=== PATIENT | female | born 1995 | race American Indian/Alaskan Native ===

== ENCOUNTER 2017-08-21 07:04 | Day surgery (SDC) | payer OTHER ==
--- NOTE | 2017-08-20 23:09 | History and Physical Report ---
History of Present Illness Date of examination: 08/20/17 Chief complaint: LLQ pain History of present illness: Pt is a 21 year old nulligravida who presents with a 6 month history of intermittent severe pain and findings of 7.9 cm and 2.4 cm left ovarian cysts. She presents today for surgical management. 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: chlamydia (remote) Family/Genetic History: hypertension Social history: no significant social history Medications and Allergies Allergies Allergy/AdvReac Type Severity Reaction Status Date / Time No Known Allergies Allergy Unverified 08/19/17 12:10 Home Medications Medication Instructions Recorded Confirmed Last Taken Type No Known Home Medications [No 08/19/17 08/19/17 Unknown History Reported Home Medications] Review of Systems All systems: negative - Physical Exam Breasts: Positive: deferred Cardiovascular: Regular rate Lungs: Positive: Clear to auscultation Abdomen: Positive: soft Extremities: Positive: normal Results All other labs normal. Assessment and Plan A: LLQ pain Left ovarian cysts P: Proceed with laparoscopic left ovarian cystectomy and other indicated procedures.
[~2017-08-21 07:04] MED LIST: ANCEF/STERILE WATER 2 GM/20 ML 2 GM/20 ML SYRINGE IV NR; LACTATED RINGERS 1,000 ML IV SCH
[2017-08-21] MEDS ORDERED: NACL BACTERIOSTATIC INFILTRATI ONE (07:38)
--- NOTE | 2017-08-21 07:54 | Anesthesia Consultation ---
Anesthesia Consult and Med Hx Date of service: 08/21/17 - Airway Anesthetic Teeth Evaluation: Good ROM Head & Neck: Adequate Mental/Hyoid Distance: Adequate Mallampati Class: Class I Intubation Access Assessment: Good - Pulmonary Exam CTA: Yes - Cardiac Exam Cardiac Exam: RRR - Pre-Operative Health Status ASA Pre-Surgery Classification: ASA1 Proposed Anesthetic Plan: General
--- NOTE | 2017-08-21 08:01 | Anesthesia Day of Surgery ---
Anesthesia Day of Surgery - Day of Surgery Patient Examined: Yes Patient H&P Reviewed: Yes Patient is NPO: Yes
[2017-08-21 08:24] LABS: Hematocrit 40.6 % (30.3-42.9); Hemoglobin 13.9 gm/dl (10.1-14.3); Mean Corpuscular HGB Conc 34 % (30-34); Mean Corpuscular Hemoglobin 31 pg (28-32); Mean Corpuscular Volume 91 fl (79-97); Platelet Count 247 K/mm3 (140-440); Red Blood Count 4.44 M/mm3 (3.65-5.03); Red Cell Distribution Width 12.8 % (13.2-15.2)
[2017-08-21] MEDS ORDERED: MARCAINE 0.5% 30 ML INFILTRATI ONE (08:45)
[2017-08-21] MEDS ORDERED: SUBLIMAZE ONE (08:48)
[2017-08-21] MEDS ORDERED: DIPRIVAN 10 MG/ML IV ONE (08:48)
[2017-08-21] MEDS ORDERED: ZEMURON IV ONE (08:59)
[2017-08-21] MEDS ORDERED: XYLOCAINE MPF 2% ONE (08:59)
[2017-08-21] MEDS ORDERED: VERSED IV NR (09:00)
[2017-08-21] MEDS ORDERED: PEPCID PO NR (09:00)
[2017-08-21] MEDS ORDERED: LACTATED RINGERS 1,000 ML ONE (09:29)
[2017-08-21] MEDS ORDERED: ZOFRAN ONE ×2 (09:41→11:28)
[2017-08-21] MEDS ORDERED: DECADRON ONE (09:41)
[2017-08-21] MEDS ORDERED: MARCAINE 0.5% INFILTRATI ONE (09:42)
[2017-08-21] MEDS ORDERED: NACL 0.9% IR ONE ×2 (09:43→09:58)
[2017-08-21] MEDS ORDERED: NEOSTIGMINE ONE (10:09)
[2017-08-21] MEDS ORDERED: ROBINUL ONE (10:09)
[2017-08-21] MEDS ORDERED: TORADOL ONE (10:09)
[2017-08-21] MEDS ORDERED: DILAUDID ONE (11:13)
--- NOTE | 2017-08-21 11:24 | Operative Report ---
Operative Report Operative Report: Date of procedure: August 21, 2017 Preoperative diagnosis: 1) Pelvic Pain 2) Complex left ovarian cyst Postoperative diagnosis: Same Procedure: Laparoscopic left ovarian cystectomy Surgeon: Sarita Le M.D. Motor Vehicle Clerk: Morena Green M.D. Anesthesia: General endotracheal anesthesia Findings: 1) Small retroverted uterus sounding to 6 cm 2) Large multiloculated cyst containing both serous and mucinous components Estimated blood loss: 25 mL IV fluid: 800 mL Urine output: 150 mL Specimens: cyst wall, cyst fluid and second cyst contents to pathology Complications: None. Counts correct 2 Disposition: Stable to PACU Indications for procedure: Patient is 21 year old nulligravida with pelvic pain x 6 months and a complex 8 cm left ovarian cyst who presents for surgical management. Operation in detail: After the risks, benefits, alternatives and complications of the procedure were explained to the patient, she gave informed consent for the procedure. She was subsequently taken to the operating room with her IV noted to be running and placed in the dorsal supine position with sequential compression devices functioning. General endotracheal anesthesia was then induced without difficulty. An exam under anesthesia was then performed yielding a small retroverted uterus. The patient was then placed in placement dorsal lithotomy position and prepped and draped in normal sterile fashion. A timeout was then performed. A burks catheter was placed. An open sided speculum was placed into the vagina for visualization of the cervix. A single-tooth tenaculum was placed on the anterior lip of the cervix for traction. The uterus was then sounded to 6 cm. A uterine manipulator was then placed. The single-tooth tenaculum and speculum were then removed from the vagina. The surgeon's gloves were then changed. Attention was then turned to entry into the abdominal cavity. A 5 mm infraumbilical incision was made with an 11 blade. The skin was grasped on either side of the umbilicus and tented up. The Veres needle was placed into the peritoneal cavity, confirmed with a saline drop test. The abdomen was then insufflated with CO2 gas to a pressure of 15 mmHg. A 5 mm Visiport trocar was then placed. An anatomic survey was then performed with findings as indicated above. Two additional 5 mm trocars were placed (one in each lower quadrant) under direct visualization. The patient was placed in Trendelenburg position. The cyst was then punctured with a needle and 150 mL of cyst fluid were drained. At this time, the monopolar scissors were used to make a 1 cm incision in the cyst. The cyst wall was then teased out, excised and sent to pathology. Another small 1 cm cyst was noted, incised with the monopoloar scissors and noted to be filled with mucinous contents. A sample of these contents was sent to pathology. The remaining ovarian tissue was then copiously irrigated and noted to be hemostatic. The cut surface was then covered with Rosalio AH. All trocars were then removed from the abdominal cavity after a Valsalva maneuver. All three incisions were then infiltrated with a quarter percent marcaine solution, and reapproximated with 4-0 Vicryl in a subcuticular fashion. Each incision was then covered with glue. All instruments were then removed from the vagina atraumatically. At this time the procedure was ended. The patient was placed into the dorsal supine position and extubated without difficulty. She was subsequently taken to the PACU in stable condition. All instrument, needle and lap counts were correct 2.
[2017-08-21] MEDS ORDERED: ZOFRAN IV NR (11:30)
[2017-08-21] MEDS ORDERED: SUBLIMAZE IV PRN (11:30)
[2017-08-21] MEDS ORDERED: DILAUDID IV PRN (11:30)
--- NOTE | 2017-08-21 11:37 | Short Stay Summary ---
Short Stay Documentation Date of service: 08/21/17 - History Social history: no significant social history - Allergies and Medications Current Medications: Allergies Latex, Natural Rubber Allergy (Verified 08/21/17 07:25) Unknown PT STATES LATEX MAKES HER FEEL FUNNY Home Medications Medication Instructions Recorded Confirmed Last Taken Type Doxycycline [Vibramycin] 100 mg PO Q12HR 08/21/17 08/21/17 08/19/17 History metroNIDAZOLE [Flagyl TAB] 500 mg PO BID 08/21/17 08/21/17 08/19/17 History Active Medications Famotidine (Pepcid) 20 mg PO PREOP NR Stop: 08/21/17 12:00 Last Admin: 08/21/17 08:31 Dose: 20 mg Fentanyl (Sublimaze) 50 mcg IV Q5MIN PRN PRN Reason: Pain , Severe (7-10) Hydromorphone HCl (Dilaudid) 0.25 mg IV Q10MIN PRN PRN Reason: Pain, Moderate (4-6) Cefazolin Sodium (Ancef/Sterile Water 2 Gm/20 Ml) 2 gm in 20 mls @ 80 mls/hr IV PREOP NR PRN Reason: Protocol Stop: 08/21/17 23:45 Lactated Ringer's (Lactated Ringers) 1,000 mls @ 100 mls/hr IV DIRECT SAIRA Last Admin: 08/21/17 08:05 Dose: 100 mls/hr Midazolam HCl (Versed) 2 mg IV PREOP NR Stop: 08/21/17 23:59 Last Admin: 08/21/17 08:32 Dose: 2 mg Ondansetron HCl (Zofran) 4 mg IV ONCE NR Stop: 08/21/17 14:30 - Physical exam Breasts: deferred - Brief post op/procedure progress note Date of procedure: 08/21/17 Pre-op diagnosis: Pelvic Pain, Complex Left ovarian cyst Post-op diagnosis: same Procedure: Laparoscopic left ovarian cystectomy Anesthesia: GETA Findings: 1) Small retroverted uterus sounding to 6 cm 2) Large multiloculated cyst containing both serous and mucinous components Surgeon: EZEQUIEL LE Kinder Teacher: DEANNE ROME Estimated blood loss: minimal (25 mL) Pathology: list (cyst fluid, cyst wall, second cyst contents) Specimen disposition: to lab Condition: stable - Hospital course Hospital course: Pt tolerated laparoscopic left ovarian cystectomy well. She was observed in the PACU until she met discharge criteria. She will follow up in the office in two weeks with Dr Le. - Disposition Condition at discharge: Stable Disposition: DC- TO HOME OR SELFCARE - Discharge Diagnoses (1) Pelvic pain Status: Acute (2) Left ovarian cyst Status: Acute Short Stay Discharge Plan Activity: other (Nothing in vagina x 4 wks ) Weight Bearing Status: Full Weight Bearing Diet: regular Follow up with: ALONDRA BOYER III, ALIREZA-BC [Primary Care Provider] - 7 Days EZEQUIEL LE MD [Staff Physician] - 09/04/17 (please call to schedule appt for incision check ) Prescriptions: Ibuprofen [Motrin] 800 mg PO Q8HR PRN #30 tablet PRN Reason: Pain oxyCODONE /ACETAMINOPHEN [Percocet 5/325] 1 tab PO Q6HR PRN #30 tablet PRN Reason: Pain
[2017-08-21] MEDS ORDERED: NORCO 5/325 PO SCH (14:00)
[2017-08-21] MEDS ORDERED: MOTRIN PO SCH (14:30)
--- NOTE | 2017-08-21 16:07 | Post Anesthesia Evaluation ---
- Post Anesthesia Evaluation Patient Participated: Yes Airway Patent: Yes Stable Respiratory Function: Yes Nausea/Vomiting: No Temp > 96.8F: Yes Pain Manageable: Yes Adequeate Hydration: Yes Anesthesia Complications: No
[2017-08-21 19:04] VITALS: BP 116/67
== END 2017-08-21 13:55 | disposition home or self-care (01) ==
LOC: OR 07:04
PROVIDERS: ATTEND Obstetrics & Gynecology
DX: D27.1 Benign neoplasm of left ovary (principal); Z91.040 Latex allergy status
CPT/HCPCS: 36415; 58662; 81025; 85027; 86850; 86900; 86901; 88112; 88305; A4217; J0690; J1100; J1170; J1885; J2250; J2405; J2704; J2710; J3010; J7120